=== PATIENT | male | born 1945 | race Caucasian/White ===

== ENCOUNTER 2018-06-02 14:25 | Emergency (ER) | payer OTHER ==
[~2018-06-02] VITALS: Ht 167.6 cm; Wt 108.9 kg
[~2018-06-02 14:25] MED LIST: AMBIEN10 MG PO; CIPRO750 MG PO; Colace 100MG PO; NEURONTIN PO; PERCOCET 5/3251 TAB PO
[2018-06-02] MEDS ORDERED: HUMULIN N100 UNIT/2 IJ (15:32)
[2018-06-02] MEDS ORDERED: FORTAMET500 MG PO (15:32)
[2018-06-02] MEDS ORDERED: DALMANE30 MG PO (15:33)
[2018-06-02] MEDS ORDERED: ATIVAN2 M1 PO (15:33)
[2018-06-02] MEDS ORDERED: COZAAR25 MG PO (15:33)
[2018-06-02] MEDS ORDERED: SYNTHROID175 MCG PO (15:33)
[2018-06-02] MEDS ORDERED: VISTARIL50 MG PO (15:33)
[2018-06-02] MEDS ORDERED: NEURONTIN800 MG PO (15:33)
[2018-06-02] MEDS ORDERED: TRAMADOL HCL50 MG PO (15:34)
[2018-06-02] MEDS ORDERED: SINGULAIR10 MG PO (15:34)
[2018-06-02] MEDS ORDERED: ECOTRIN81 MG PO (15:34)
[2018-06-02] MEDS ORDERED: TAMS0.4C PO (15:34)
[2018-06-02] MEDS ORDERED: ATORVASTATIN CA40 MG PO (15:35)
== END 2018-06-02 19:49 | disposition home or self-care (01) ==
LOC: ER 14:25
DX: M54.5 Low back pain (principal)